=== PATIENT | female | born 2000 | race Caucasian/White ===

== ENCOUNTER 2024-12-27 07:41 | Inpatient (IN) ==
[2024-12-27] MEDS ORDERED: LIDOCAINE 1% LOCAL 20 ML VIAL INFIL PRN (09:03)
[2024-12-27] MEDS ORDERED: OXYTOCIN 30 UNITS/NSS 30 UNITS/500 ML BAG IV PRN (09:03)
[2024-12-27] MEDS ORDERED: CALCIUM CARBONATE 500 MG CHEWABLE TAB PO PRN (09:03)
[2024-12-27] MEDS: LACTATED RINGER'S 1,000 ML IV PRN (09:13)
[2024-12-27] MEDS: OXYTOCIN 30 UNITS/NSS 30 UNITS/500 ML BAG IV PRN (09:14)
[2024-12-27 09:50] LABS: Hematocrit (blood only) 37.6 % (37.0-47.0); Hemoglobin 12.5 g/dl (12.0-16.0); Mean Corpuscular Hemoglobin 28.9 pg (25.0-34.0); Mean Corpuscular Volume 86.8 fL (80.0-100.0); Platelet Count 250 K/uL (130-400); RDW Standard Deviation 46.0 fL (36.4-46.3); Red Blood Count 4.33 M/uL (4.20-5.40); White Blood Count 10.67 K/ul (4.8-10.8)
--- NOTE | 2024-12-27 12:20 | History & Physical Report ---
Date of Service December 27, 2024 Assessment & Plan (1) Obesity affecting : Plan 24 yo female currently at 39+2WGA here for IOL. Oxytocin started. Admission and Anticipated Discharge Date Admission Date: December 27, 2024 History of Present Illness Primary Care Provider: NO PCP Patient is a 24 yo female currently at 39+2WGA with an TRAE 12/31/2024 as determined by LMP who is here for reason for induction. Her was complicated by high BMI. movement present; No fluid loss;No bloody show External FHT and external uterine monitors used; category 1 tracing; normal FHT variability Had regular appointments with OB. Blood Type A Positive 05/28/24 Antibody Screen NEGATIVE Hgb 12.5 g/dl (12.0-16.0) Hct 37.6% (37.0-47.0) WBC 10.67 Plt Count 351 K/uL (130-400) Rubella IgG Antibody Immune (Immune) Treponema pallidum Ab Negative (Negative) Hep Bs Antigen Negative (Negative) Hepatitis C Antibody Negative (Negative) HIV 1&2 Ab/P24 Ag 4thGn Negative (Negative) Glucose 1 Hr 50 gm 114 mg/dl (70-130) OB Optional Labs: Chlamydia trachomatis RNA Not Detected (NotDetected) Neisseria gonorrhoeae RNA Not Detected (NotDetected) Allergies Allergy/AdvReac Type Severity Reaction Status Date / Time amoxicillin Allergy Intermediate Hives Verified 12/26/24 08:47 Home Medications Medication Instructions Recorded Confirmed Type PNV no.[id number] PO 05/21/24 12/26/24 History [ Gummies] sertraline PO 05/21/24 12/26/24 History breast pump #1 ea 10/12/24 12/26/24 Rx Past Med/Surg History Problem List (Updated 10/22/24 @ 10:59 by JEAN Dobson) Obesity affecting Supervision of normal first Encounter for anatomic survey Early stage of Medical History (Updated 10/22/24 @ 10:59 by JEAN Dobson) Varicella vaccination Depression with anxiety Surgical History (Updated 06/04/24 @ 07:47 by Rosalba Dahl) S/P tonsillectomy S/P surgical removal of pilonidal cyst Family History (System 06/04/24 @ 07:47 by Rosalba Dahl) Denies family history of Ovarian cancer Breast cancer Colorectal cancer Social History (System 06/04/24 @ 07:47 by Rosalba Dahl) Smoking Status: Never smoker Second Hand Exposure: No; Do You Dip or Chew Tobacco: No; Tobacco Cessation Education Requested by Patient: No Hx Alcohol Use: No Hx Substance Use: No Preferred Language: [place]an Communication Ability: Effective Precipitate Washer Required: No Beliefs That Will Affect Care: None marital status: marital status details: Aleks Mao ([phone] Current Living Situation: Spouse Current Living Situation Comment: lives with spouse, dogs, cat-spouse changing litter current occupational status: employed current occupation: [employer] Feels Safe at Home: Yes Safety Concerns: Feels Safe At This Time Assistive Devices: None Results & Data Results & Data Vital Signs (Past 12 Hours) Vital Signs Temp Pulse Resp BP O2 Del Method 12/27/24 12:15 93 H 132/61 12/27/24 12:00 18 12/27/24 12:00 36.7 C 18 12/27/24 11:15 99 H 138/66 12/27/24 11:00 18 12/27/24 11:00 18 12/27/24 10:30 20 12/27/24 10:30 20 12/27/24 10:15 92 H 123/70 12/27/24 10:00 20 12/27/24 10:00 20 12/27/24 09:15 18 12/27/24 09:15 94 H 18 155/77 H 12/27/24 07:55 36.6 C 88 18 137/63 Room Air 12/27/24 07:51 36.6 C 88 18 137/63 Resident Activity Tracking Resident Involvement: Resident Care Provided Care Provided: Adult Hospital Medicine
[2024-12-27] MEDS: ACETAMINOPHEN 325 MG TAB PO PRN (14:47)
--- NOTE | 2024-12-27 17:57 | Labor Progress Brief Note ---
Date of Service December 27, 2024 Subjective Tolerating ctx, not requesting epidural Assessment & Plan Admission and Anticipated Discharge Date Admission Date: December 27, 2024 Physical Exam Genitourinary: /1/anterior LOF clear FHT Cat 1 [place] Q3 w/ Pit @ 16 Results & Data Vital Signs (Past 12 Hours) Vital Signs Temp Pulse Resp BP O2 Del Method 12/27/24 17:47 96 H 136/77 12/27/24 17:30 18 12/27/24 17:30 18 12/27/24 17:00 18 12/27/24 17:00 98.6 F 18 12/27/24 16:30 20 12/27/24 16:30 20 12/27/24 16:13 93 H 124/59 L 12/27/24 15:30 18 12/27/24 15:30 18 12/27/24 15:15 98.2 F 20 12/27/24 15:12 89 123/65 12/27/24 15:00 18 12/27/24 15:00 18 12/27/24 14:40 18 12/27/24 14:40 98.4 F 18 12/27/24 14:15 93 H 113/62 12/27/24 14:00 18 12/27/24 14:00 18 12/27/24 13:16 97 H 116/58 L 12/27/24 13:00 18 12/27/24 13:00 18 12/27/24 12:15 93 H 132/61 12/27/24 12:00 18 12/27/24 12:00 98.1 F 18 12/27/24 11:15 99 H 138/66 12/27/24 11:00 18 12/27/24 11:00 18 12/27/24 10:30 20 12/27/24 10:30 20 12/27/24 10:15 92 H 123/70 12/27/24 10:00 20 12/27/24 10:00 20 12/27/24 09:15 18 12/27/24 09:15 94 H 18 155/77 H 12/27/24 07:55 97.9 F 88 18 137/63 Room Air 12/27/24 07:51 97.9 F 88 18 137/63 Coding Level of Care Code None
--- NOTE | 2024-12-28 02:17 | Labor Progress Brief Note ---
Date of Service December 28, 2024 Subjective Tolerating contractions without epidural despite pit back up to 20mu/min. Assessment & Plan (1) Encounter for induction of labor: Plan: Patient with some dilation but slow progress and less discomfort than is typically occurring at 20mu/min of pit. IUPC placed. Titrate pit to 200-250 MVU. Admission and Anticipated Discharge Date Admission Date: December 27, 2024 Physical Exam Genitourinary: LOF clear 5/80/-1/midposition FHT Cat 1 [place] Q2-3 IUPC placed after patient was counseled and consented. Results & Data Vital Signs (Past 12 Hours) Vital Signs Temp Pulse Resp BP 12/28/24 01:59 106 H 139/73 12/28/24 01:02 103 H 123/64 12/28/24 00:07 100 H 125/57 L 12/28/24 00:00 16 12/28/24 00:00 97.9 F 16 12/27/24 23:02 95 H 116/54 L 12/27/24 23:00 16 12/27/24 23:00 16 12/27/24 22:00 16 12/27/24 22:00 98.4 F 16 12/27/24 21:32 93 H 140/63 12/27/24 20:02 98.4 F 90 16 126/60 12/27/24 18:57 98.6 F 78 18 120/65 12/27/24 18:45 18 12/27/24 18:45 18 12/27/24 18:30 18 12/27/24 18:30 18 12/27/24 18:13 90 130/65 12/27/24 18:00 18 12/27/24 18:00 18 12/27/24 17:47 96 H 136/77 12/27/24 17:30 18 12/27/24 17:30 18 12/27/24 17:00 18 12/27/24 17:00 98.6 F 18 12/27/24 16:30 20 12/27/24 16:30 20 12/27/24 16:13 93 H 124/59 L 12/27/24 15:30 18 12/27/24 15:30 18 12/27/24 15:15 98.2 F 20 12/27/24 15:12 89 123/65 12/27/24 15:00 18 10/02/25 15:00 18 12/27/24 14:40 18 12/27/24 14:40 98.4 F 18 Coding Level of Care Code None Diagnoses Encounter for induction of labor Z34.90
--- NOTE | 2024-12-28 09:13 | Labor Progress Brief Note ---
Date of Service December 28, 2024 Subjective comfortable, pit at 30, feels some pressure. readyto void. Assessment & Plan (1) Encounter for induction of labor: (2) Obesity affecting : Plan cx change noted, first exam by me, she has been sitting upright most of am, rec she change position, possible knee chest to see if can help advance her labor. she does not have epidural and so freely mobile. she is agreeable. fhts categ 1. pt aware i am assuming care. Admission and Anticipated Discharge Date Admission Date: December 27, 2024 Physical Exam Constitutional: WD/WN, vitals as above Genitourinary: Manual OB Exam: + cervical dilation (7-8cm), + cervical effacement (irregular, 75% to 90%, anterior cx less effaced. ) and + station 0 OB Exam Monitor Tracing: + external FHT monitor used, + intra-uterine pressure catheter used (mvu's have been adequate,pit at 30. ), + category I and + normal FHT variability Results & Data Vital Signs (Past 12 Hours) Vital Signs Temp Pulse Resp BP 12/28/24 08:24 99 H 136/64 12/28/24 07:03 93 H 133/66 12/28/24 07:02 18 12/28/24 07:02 98.8 F 18 12/28/24 06:21 98.4 F 96 H 16 135/61 12/28/24 05:30 97 H 132/66 12/28/24 04:26 98.6 F 90 16 136/71 12/28/24 02:00 16 12/28/24 02:00 97.9 F 16 12/28/24 01:59 106 H 139/73 12/28/24 01:02 103 H 123/64 12/28/24 00:07 100 H 125/57 L 12/28/24 00:00 16 12/28/24 00:00 97.9 F 16 12/27/24 23:02 95 H 116/54 L 12/27/24 23:00 16 12/27/24 23:00 16 12/27/24 22:00 16 12/27/24 22:00 98.4 F 16 12/27/24 21:32 93 H 140/63 Coding Level of Care Code None Diagnoses Encounter for induction of labor Z34.90 Obesity affecting O99.210
[2024-12-28] MEDS ORDERED: diphenhydrAMINE 50 MG/ML VIAL IV PRN ×3 (10:37→19:37)
[2024-12-28] MEDS ORDERED: BUPIVACAINE 0.25% PF 30 ML VIAL EPI PRN (10:37)
[2024-12-28] MEDS ORDERED: NALOXONE HCL 0.4 MG/1 ML VIAL/CARP IV PRN ×2 (10:37→19:37)
[2024-12-28] MEDS ORDERED: NALBUPHINE HCL INJ 10 MG/ML AMP IV PRN ×2 (10:37→19:37)
[2024-12-28] MEDS ORDERED: SODIUM CHLORIDE 0.9% PF INJ 10 ML VIAL EPI PRN (10:37)
[2024-12-28] MEDS ORDERED: ROPIVACAINE 0.5% PF 5 MG/ML 20 ML VIAL EPI PRN (10:37)
[2024-12-28] MEDS ORDERED: NALOXONE HCL 1 MG in SODIUM CHLORIDE 0.9% 1,000 ML IV PRN ×2 (10:37→19:37)
[2024-12-28] MEDS ORDERED: LIDOCAINE 2% MPF LOCAL 5 ML VIAL EPI PRN (10:37)
--- NOTE | 2024-12-28 10:38 | Anesthesiology Consultation ---
Date of Service December 28, 2024 Assessment & Plan (1) Encounter for pre-operative examination: Chart Review Chart Review: Patient NOT seen in Pre Admission Testing and Acceptable Risk for Labor Epidural Consults Requested none History Height/Weight Height: 5 ft 3 in Weight: 136.078 kg Allergies Allergy/AdvReac Type Severity Reaction Status Date / Time amoxicillin Allergy Intermediate Hives Verified 12/26/24 08:47 Medications Home Medications Medication Instructions Recorded Confirmed Last Taken PNV no.[id number] 100 mg PO DAILY 05/21/24 12/27/24 12/26/24 [ Gummies] sertraline 50 mg PO DAILY 05/21/24 12/27/24 12/26/24 breast pump #1 ea 10/12/24 12/26/24 Unknown Active Medications Generic Name Dose Route Start Last Admin Trade Name Freq PRN Reason Stop Dose Admin Acetaminophen 650 mg 12/27/24 14:41 12/27/24 14:47 Acetaminophen 325 Mg Tab PO 01/26/25 14:40 650 mg Q4H PRN Administration Headache or Pain Oxytocin 30 units in 500 mls @ 30 mls/hr 12/27/24 09:03 12/28/24 07:30 Pitocin 30 Units/Nss IV 12/29/24 09:02 1.8 units/hr .[id number] PRN 30 mls/hr Labor Induction/Augmentation Titration Protocol 1.8 UNITS/HR Lactated Ringer's 1,000 mls @ 125 mls/hr 12/27/24 09:03 12/28/24 09:19 Lr IV 12/29/24 09:02 125 mls/hr .Q8H PRN Administration L&D Protocol Protocol Past Medical History Medical History Varicella vaccination Depression with anxiety Past Family History Family History Denies family history of Ovarian cancer Breast cancer Colorectal cancer Past Surgical History Surgical History S/P tonsillectomy S/P surgical removal of pilonidal cyst Social History Smoking Status: Never smoker Do You Dip or Chew Tobacco: No Hx Alcohol Use: No Hx Substance Use: No Physical Exam Vital Signs Last Vital Signs Temp 98.4 F 12/28/24 09:45 Pulse 91 H 12/28/24 09:45 Resp 18 12/28/24 09:45 BP 125/57 L 12/28/24 09:45 O2 Del Method Room Air 12/27/24 07:55 Testing Laboratory Results 12/27/24 09:22
[2024-12-28] MEDS: LIDOCAINE 2%/EPINEPHRINE 1:200,000 20 ML PF EPI STA (11:00)
[2024-12-28] MEDS: BUPIVACAINE 0.25% PF 30 ML VIAL EPI STA (11:00)
[2024-12-28] MEDS: fentANYL 2 MCG/ML BUPIVacaine 0.125%-NSS 100ML BAG EPI PRN (11:03)
[2024-12-28] MEDS: BUPIVACAINE 0.25% PF 30 ML VIAL ONE (12:29)
[2024-12-28] MEDS: fentANYL 2 MCG/ML BUPIVacaine 0.125%-NSS 100ML BAG ONE (12:29)
[2024-12-28] MEDS: LIDOCAINE 2%/EPINEPHRINE 1:200,000 20 ML PF ONE (12:29)
[2024-12-28] MEDS: SODIUM CHLORIDE 0.9% PF INJ 10 ML VIAL ONE (12:30)
[2024-12-28] MEDS: SODIUM CHLORIDE 0.9% PF INJ 10 ML VIAL EPI STA (12:31)
--- NOTE | 2024-12-28 12:58 | Labor Progress Brief Note ---
Date of Service December 28, 2024 Subjective pt now with epidural. Assessment & Plan (1) Encounter for induction of labor: (2) Obesity affecting : Plan making cx change but not alot of pressure against cx even when examined with ctx, even with pit at 30. will continue current care. fhts categ 1. change positions. reeval cx in about 2 hr. pt agreeable. Admission and Anticipated Discharge Date Admission Date: December 27, 2024 Physical Exam Constitutional: WD/WN, vitals as above Genitourinary: Manual OB Exam: + cervical dilation 9 cm, + cervical effacement 90% and + station 0 OB Exam Monitor Tracing: + external FHT monitor used, + external uterine monitor used (q2), + intra-uterine pressure catheter used (guided back intrauterine, will see if traces, pit at 30), + category I and + normal FHT variability Results & Data Vital Signs (Past 12 Hours) Vital Signs Temp Pulse Resp BP Pulse Ox 12/28/24 12:55 88 100 12/28/24 12:50 89 98 12/28/24 12:48 85 128/62 12/28/24 12:45 87 99 12/28/24 12:40 87 99 12/28/24 12:35 83 98 12/28/24 12:32 94 H 127/62 12/28/24 12:30 85 99 12/28/24 12:25 88 99 12/28/24 12:20 83 98 12/28/24 12:18 90 132/67 12/28/24 12:15 99 H 98 12/28/24 12:10 83 98 12/28/24 12:05 81 98 12/28/24 12:02 80 108/53 L 12/28/24 12:00 87 99 12/28/24 11:55 83 98 12/28/24 11:50 87 98 12/28/24 11:47 18 12/28/24 11:47 97.9 F 18 12/28/24 11:45 88 99 12/28/24 11:40 86 98 12/28/24 11:38 83 113/56 L 12/28/24 11:35 82 113/56 L 98 12/28/24 11:32 85 112/53 L 12/28/24 11:30 87 97 12/28/24 11:29 85 113/53 L 12/28/24 11:27 92 H 126/55 L 12/28/24 11:26 98 H 91 12/28/24 11:25 97 H 96 12/28/24 11:23 95 H 131/61 12/28/24 11:20 97 12/28/24 11:20 102 H 12/28/24 11:20 100 H 128/62 12/28/24 11:17 99 H 128/61 12/28/24 11:15 103 H 97 12/28/24 11:14 96 H 134/61 12/28/24 11:11 102 H 136/62 12/28/24 11:10 113 H 97 12/28/24 11:09 103 H 133/61 12/28/24 11:05 100 H 126/61 97 12/28/24 11:02 101 H 130/59 L 12/28/24 11:00 101 H 98 12/28/24 10:59 94 H 143/74 H 12/28/24 10:56 94 H 141/71 H 12/28/24 10:55 85 97 12/28/24 10:50 101 H 97 12/28/24 10:45 105 H 97 12/28/24 09:45 98.4 F 91 H 18 125/57 L 12/28/24 08:24 99 H 136/64 12/28/24 07:03 93 H 133/66 12/28/24 07:02 18 12/28/24 07:02 98.8 F 18 12/28/24 06:21 98.4 F 96 H 16 135/61 12/28/24 05:30 97 H 132/66 12/28/24 04:26 98.6 F 90 16 136/71 12/28/24 02:00 16 12/28/24 02:00 97.9 F 16 12/28/24 01:59 106 H 139/73 12/28/24 01:02 103 H 123/64 Coding Level of Care Code None Diagnoses Encounter for induction of labor Z34.90 Obesity affecting O99.210
[2024-12-28] MEDS: ONDANSETRON INJ 2 MG/ML 2 ML VIAL IV PRN (14:53)
[2024-12-28] MEDS: ACETAMINOPHEN 500 MG TAB ONE (16:36)
[2024-12-28] MEDS ORDERED: LIDOCAINE 2%/EPINEPHRINE 1:200,000 20 ML PF ONE (16:54)
[2024-12-28] MEDS ORDERED: DEXAMETHASONE SOD INJ 4 MG/ML VIAL ONE (16:54)
[2024-12-28] MEDS ORDERED: ONDANSETRON INJ 2 MG/ML 2 ML VIAL ONE (16:54)
[2024-12-28] MEDS ORDERED: MoRPHine SULFATE PF 1 MG/ML 10 ML AMP/VIAL ONE (16:54)
--- NOTE | 2024-12-28 17:00 | Labor Progress Brief Note ---
Date of Service December 28, 2024 Subjective ctsp due to elevated temp and tachycardia Assessment & Plan (1) Encounter for induction of labor: (2) Obesity affecting : (3) Chorioamnionitis: (4) tachycardia affecting care of mother, delivered: Plan no change in cx and now with elevated temp, most likely c/w chorio and tachycardia. rec c/s delivery and pt and partner agree. consent reviewed and signed. peds and anesth aware. Admission and Anticipated Discharge Date Admission Date: December 27, 2024 Physical Exam Constitutional: WD/WN, vitals as above (temp 39.4) Genitourinary: Manual OB Exam: + cervical dilation (9cm no change, 90% effaced 0 station) OB Exam Monitor Tracing: + external FHT monitor used, + intra- uterine pressure catheter used, + category I ( tachycardia 180s. ) and + normal FHT variability Results & Data Vital Signs (Past 12 Hours) Vital Signs Temp Pulse Resp BP Pulse Ox 12/28/24 16:50 135 H 99 12/28/24 16:45 132 H 99 12/28/24 16:40 127 H 100 12/28/24 16:35 127 H 100 12/28/24 16:30 113 H 100 12/28/24 16:28 113 H 118/56 L 12/28/24 16:25 114 H 100 12/28/24 16:20 108 H 96 12/28/24 16:15 116 H 99 12/28/24 16:14 112 H 92 12/28/24 16:10 102 H 100 12/28/24 16:05 105 H 100 12/28/24 16:00 100 H 100 12/28/24 15:57 105 H 121/56 L 12/28/24 15:55 109 H 99 12/28/24 15:50 107 H 100 12/28/24 15:45 128 H 100 12/28/24 15:40 120 H 100 12/28/24 15:35 123 H 99 12/28/24 15:30 114 H 100 12/28/24 15:25 118 H 100 12/28/24 15:20 128 H 92 12/28/24 15:15 99.3 F 116 H 100 12/28/24 15:10 116 H 99 12/28/24 15:06 108/56 L 12/28/24 15:05 117 H 96 12/28/24 15:00 120 H 98 12/28/24 14:59 122 H 91 12/28/24 14:55 117 H 99 12/28/24 14:50 124 H 99 12/28/24 14:45 109 H 99 12/28/24 14:40 118 H 100 12/28/24 14:35 114 H 100 12/28/24 14:30 107 H 100 12/28/24 14:25 114 H 97 12/28/24 14:20 87 100 12/28/24 14:19 80 78/38 L 12/28/24 14:15 88 12/28/24 14:15 90 176/111 H 100 12/28/24 14:14 98.4 F 12/28/24 14:13 22 12/28/24 14:12 94 H 92 12/28/24 14:10 96 H 100 12/28/24 14:07 92 H 89 L 12/28/24 14:05 80 100 12/28/24 14:00 82 100 12/28/24 13:55 90 94 12/28/24 13:54 87 93 12/28/24 13:50 81 100 12/28/24 13:49 148 H 116/51 L 12/28/24 13:45 82 100 12/28/24 13:42 96 H 93 12/28/24 13:40 82 100 12/28/24 13:35 92 H 100 12/28/24 13:30 100 H 100 12/28/24 13:25 77 100 12/28/24 13:20 79 100 12/28/24 13:15 73 100 12/28/24 13:11 104 H 92 12/28/24 13:10 94 H 100 12/28/24 13:05 84 99 12/28/24 13:02 82 129/62 12/28/24 13:00 82 99 12/28/24 12:55 88 100 12/28/24 12:50 89 98 12/28/24 12:48 85 128/62 12/28/24 12:45 87 99 12/28/24 12:40 87 99 12/28/24 12:35 83 98 12/28/24 12:32 94 H 127/62 12/28/24 12:30 85 99 12/28/24 12:25 88 99 12/28/24 12:20 83 98 12/28/24 12:18 90 132/67 12/28/24 12:15 99 H 98 12/28/24 12:10 83 98 12/28/24 12:05 81 98 12/28/24 12:02 80 108/53 L 12/28/24 12:00 87 99 12/28/24 11:55 83 98 12/28/24 11:50 87 98 12/28/24 11:47 18 12/28/24 11:47 97.9 F 18 12/28/24 11:45 88 99 12/28/24 11:40 86 98 12/28/24 11:38 83 113/56 L 12/28/24 11:35 82 113/56 L 98 12/28/24 11:32 85 112/53 L 12/28/24 11:30 87 97 12/28/24 11:29 85 113/53 L 12/28/24 11:27 92 H 126/55 L 12/28/24 11:26 98 H 91 12/28/24 11:25 97 H 96 12/28/24 11:23 95 H 131/61 12/28/24 11:20 97 12/28/24 11:20 102 H 12/28/24 11:20 100 H 128/62 12/28/24 11:17 99 H 128/61 12/28/24 11:15 103 H 97 12/28/24 11:14 96 H 134/61 12/28/24 11:11 102 H 136/62 12/28/24 11:10 113 H 97 12/28/24 11:09 103 H 133/61 12/28/24 11:05 100 H 126/61 97 12/28/24 11:02 101 H 130/59 L 12/28/24 11:00 101 H 98 12/28/24 10:59 94 H 143/74 H 12/28/24 10:56 94 H 141/71 H 12/28/24 10:55 85 97 12/28/24 10:50 101 H 97 12/28/24 10:45 105 H 97 12/28/24 09:45 98.4 F 91 H 18 125/57 L 12/28/24 08:24 99 H 136/64 12/28/24 07:03 93 H 133/66 12/28/24 07:02 18 12/28/24 07:02 98.8 F 18 12/28/24 06:21 98.4 F 96 H 16 135/61 12/28/24 05:30 97 H 132/66 Coding Level of Care Code None Diagnoses Encounter for induction of labor Z34.90 Obesity affecting O99.210 Chorioamnionitis O41.1290 tachycardia affecting care of mother, delivered O76
[2024-12-28] MEDS: CITRIC ACID/SODIUM CITRATE 15 ML UDC PO SCH (17:03)
[2024-12-28] MEDS: ceFAZolin 3000MG 3,000 MG/72.5 ML BAG IV SCH (17:06)
[2024-12-28] MEDS ORDERED: SODIUM CHLORIDE 0.9% PF INJ 10 ML VIAL ONE (17:25)
[2024-12-28] MEDS ORDERED: PHENYLEPHRINE HCL 10 MG/ML VIAL ONE (17:25)
[2024-12-28] MEDS ORDERED: PROMETHAZINE HCL INJ 25 MG/ML 1 ML VIAL ONE (17:29)
[2024-12-28] MEDS ORDERED: OXYTOCIN 10 UNITS/ML VIAL ONE (17:34)
[2024-12-28] MEDS ORDERED: METHYLERGONOVINE MALEATE 0.2 MG/ML AMP ONE (17:38)
[2024-12-28] MEDS ORDERED: PHENYLEPHRINE 100MCG/ML 5ML SYR ONE (17:39)
[2024-12-28] MEDS ORDERED: TRANEXAMIC ACID / 0.7% NACL 1000MG/100ML BAG IV ONE (17:41)
[2024-12-28] MEDS ORDERED: LACTATED RINGER'S 1,000 ML IV SCH ×2 (18:00→18:45)
[2024-12-28] MEDS: AZITHROMYCIN 500 MG/255 ML BAG IV SCH (18:08)
[2024-12-28] MEDS: CITRIC ACID/SODIUM CITRATE 15 ML UDC ONE (18:09)
--- NOTE | 2024-12-28 18:13 | Operative Report ---
Post Operative Report Pre & Post Diagnosis Operation Date: 12/28/24 17:00 <No data on this case meets the specified criteria> 1. 39+wk iup 2. Maternal obesity 3. Induction of labor 4. Failure to Progress 5. Presumed Chorioamnionitis 6. Tachycardia. I identified the patient and participated in the time-out.: Yes Procedure Operation Date: 12/28/24 17:00 <No data on this case meets the specified criteria> Primary Low Transverse Section. Surgeon Paulina Coronel MD, FACOG Dump [employer] Staci Quantitative Blood Loss (QBL) 353 cc Findings Consistent with Post-Op Diagnosis (viable male apgars pending. normal uterus tubes and ovaries bilaterally) Fluids 1000cc Specimens cord blood and cord gases Drains orozco Anesthesia Type Labor Epidural Complications none Disposition Accompanied Patient To Recovery: No Disposition: L&D Indications 24yo at term for planned induction for obesity, bmi 44. Ultimately progressed to 9cm but then persisted at that dilation for at least 4hrs on high dose pitocin with development of presumed chorioamnionitis and tachycardia recommended for c/section and she agreed. Description of Procedure The patient was taken to the operating room and identified. After adequate anesthesia was obtained, she was placed in the supine position with a leftward tilt on the operating table and prepped and draped in the usual sterile fashion. A orozco catheter had already been placed. The knife was used to create a Pfannensteil skin incision that was carried down to the underlying layer of fascia. The fascia was nicked in the midline and this opening was extended laterally using Quinones scissors. Josr clamps were placed on the superior and inferior aspect of the fascial incision tenting it upward and the underlying rectus muscles were dissected off the overlying fascia both sharply and bluntly using Quinones scissors. The rectus muscles were bluntly in the midline. The peritoneal cavity was bluntly entered into. This opening was stretched. The bladder blade was placed. The vesicouterine peritoneum was elevated and opened up into and the bladder flap was created digitally and bladder blade was replaced. The knife was used to create a hysterotomy and this opening was stretched. The operators hand was placed through the hysterotomy and the bladder blade was removed. The head was elevated and flexed and with fundal pressure the head was delivered. The shoulders and body were rapidly delivered. The cord was clamped and cut and the 's mouth and nares were bulb suction. The was handed off to the awaiting pediatricians. Cord blood was obtained. The placenta was manually expressed. The uterus was exteriorized and cleared of all clots and debris. Dilute IV Pitocin was begun. The uterine tone was not improving and therefore IM methergine and 1gm of TXA given. The hysterotomy was closed in a running interlocking fashion using 0 Vicryl followed by a second imbricating layer of 0 Vicryl. The hysterotomy was not hemostatic and additional figure of eight sutures of 0-vicryl were placed for excellent hemostasis. The uterine tone was improved. The pelvis was suctioned. The uterus was returned to the abdomen. The gutters were cleared of all clots and debris. The hysterotomy was reinspected and noted to be hemostatic. The fascia was then closed in running fashion using 0 Vicryl. The subcutaneous fat was copiously irrigated and reapproximated using 2-0 chromic. The skin was closed in a subcuticular fashion using 4-0 monocryl. At this point the procedure was terminated. The patient was transferred to the recovery room in stable condition. All sponge, lap and needle counts are correct x2. I attest to the content of the Intraoperative Record and any orders documented therein. Any exceptions are noted below. OB Procedure Charges [id number]
[2024-12-28] MEDS ORDERED: PROMETHAZINE 12.5 MG/50.5 ML BAG IV PRN (18:36)
[2024-12-28] MEDS ORDERED: ZOLPIDEM TARTRATE 5 MG TAB PO PRN (18:36)
[2024-12-28] MEDS ORDERED: MAGNESIUM HYDROXIDE SUSP 30 ML UDC PO PRN (18:36)
[2024-12-28] MEDS ORDERED: HYDROCORTISONE ACETATE 25 MG SUPP PR PRN (18:36)
[2024-12-28] MEDS ORDERED: SENNA 8.6 MG TAB PO PRN (18:36)
[2024-12-28] MEDS ORDERED: BENZOCAINE 20% SPRY 85 APPLN/85 GM CAN EXT PRN (18:36)
[2024-12-28] MEDS ORDERED: CALCIUM CARBONATE 500 MG CHEWABLE TAB PO PRN (18:36)
[2024-12-28] MEDS ORDERED: HYDROmorphone INJ 0.5 MG/0.5 ML SYR IV PRN ×2 (18:36→19:37)
[2024-12-28] MEDS ORDERED: ONDANSETRON INJ 2 MG/ML 2 ML VIAL IV PRN ×2 (18:36→19:37)
[2024-12-28] MEDS ORDERED: diphenhydrAMINE Capsule 25 MG CAP PO PRN (18:36)
[2024-12-28] MEDS: LACTATED RINGER'S 1,000 ML IV SCH (18:37)
[2024-12-28] MEDS: KETOROLAC 30 MG/ML VIAL IV SCH (18:46)
[2024-12-28] MEDS: KETOROLAC 30 MG/ML VIAL ONE (19:02)
[2024-12-28] MEDS ORDERED: NALOXONE HCL 0.08 MG in SYRINGE 1.8 ML IV PRN (19:37)
[2024-12-28] MEDS ORDERED: LACTATED RINGER'S 500 ML IV PRN (19:37)
[2024-12-28] MEDS ORDERED: PROMETHAZINE 6.25 MG/50.25 ML BAG IV PRN (19:37)
[2024-12-28] MEDS ORDERED: MoRPHine SULFATE PF 1 MG/ML 10 ML AMP/VIAL EPI ONE (19:40)
[2024-12-28] MEDS ORDERED: NO NARCOTICS OR SEDATIVES SCH (19:45)
[2024-12-28] MEDS ORDERED: DC INTRASPINAL MORPHINE SCH (19:45)
[2024-12-28] MEDS ORDERED: SODIUM CHLORIDE 0.9% 1,000 ML IV SCH (19:45)
[2024-12-28] MEDS: OXYTOCIN 20 UNITS/LR 1,002 ML IV SCH (21:11)
[2024-12-28] MEDS: DOCUSATE SODIUM 100 MG CAP PO SCH (21:24)
[2024-12-28] MEDS ORDERED: Nursing to Pharmacy Communication SCH (22:00)
[2024-12-28] MEDS: SERTRALINE HCL 50 MG TABLET PO SCH (22:29)
[2024-12-29] MEDS: ACETAMINOPHEN 325 MG TAB PO SCH (00:46)
[2024-12-29] MEDS: SIMETHICONE 80 MG CHEW PO SCH (06:30)
[2024-12-29 06:51] LABS: Hematocrit (blood only) 32.1 % (37.0-47.0); Hemoglobin 11.0 g/dl (12.0-16.0); Immature Granulocytes # (auto) 0.20 K/uL (0.01-0.20); Immature Granulocytes % (auto) 1.0 %; Mean Corpuscular Hemoglobin 30.1 pg (25.0-34.0); Mean Corpuscular Volume 87.9 fL (80.0-100.0); Platelet Count 203 K/uL (130-400); RDW Standard Deviation 47.0 fL (36.4-46.3); Red Blood Count 3.65 M/uL (4.20-5.40); White Blood Count 20.36 K/ul (4.8-10.8)
--- NOTE | 2024-12-29 07:53 | Obstetrical Progress Note ---
Date of Service December 29, 2024 Assessment & Plan (1) care following delivery: Plan stable doing well. labs noted. no fever. adv diet, ambulate, await void. baby in INBN. routine care. Day #:: 1 Subjective Ambulation: ambulating normally Passing Gas:: Yes Diet Tolerance:: regular diet Lochia:: Small Feeding Type:: breast feeding has not voided yet. Constitutional: + as per Subjective / HPI Physical Exam Constitutional WD/WN, vitals as above Respiratory normal respiratory effort, lungs clear to auscultation Cardiovascular Rate/Rhythm: regular rate and regular rhythm Gastrointestinal (Abdomen) Inspection/Auscultation: abdomen normal to inspection and + abdominal surgical incision (c/d/i ) Percussion/Palpation: abdomen soft Fundus firm 1cm down Musculoskeletal nt calves [] edema Neurologic grossly normal Psychiatric A+Ox3, euthymic affect Results & Data Vital Signs (Past 12 Hours) Vital Signs Temp Pulse Pulse Resp BP BP Pulse Ox 12/29/24 06:15 18 97 12/29/24 05:00 18 93 12/29/24 04:15 18 94 12/29/24 03:07 97.7 F 83 19 132/79 96 12/29/24 03:00 18 94 12/29/24 02:00 18 96 12/29/24 01:00 18 96 12/29/24 00:50 97.7 F 92 H 18 128/70 99 12/29/24 00:00 18 96 12/28/24 23:00 18 96 12/28/24 22:00 18 95 12/28/24 21:25 18 97 12/28/24 21:25 97.9 F 90 18 117/76 97 12/28/24 21:20 97.5 F L 94 H 18 121/71 97 12/28/24 20:19 16 95 12/28/24 20:19 92 H 125/55 L 12/28/24 20:15 89 95 12/28/24 20:13 104 H 124/61 12/28/24 20:10 103 H 94 12/28/24 20:05 99 H 94 12/28/24 20:03 97 H 129/60 12/28/24 20:00 101 H 94 12/28/24 19:55 101 H 95 12/28/24 19:53 101 H 130/63 O2 Del Method 12/29/24 06:15 12/29/24 05:00 12/29/24 04:15 12/29/24 03:07 Room Air 12/29/24 03:00 12/29/24 02:00 12/29/24 01:00 12/29/24 00:50 Room Air 12/29/24 00:00 12/28/24 23:00 12/28/24 22:00 12/28/24 21:25 12/28/24 21:25 Room Air 12/28/24 21:20 Room Air 12/28/24 20:19 Room Air 12/28/24 20:19 12/28/24 20:15 12/28/24 20:13 12/28/24 20:10 12/28/24 20:05 12/28/24 20:03 12/28/24 20:00 12/28/24 19:55 12/28/24 19:53
[2024-12-29] MEDS: PRENATAL VITAMIN 1 TAB PO SCH (08:46)
[2024-12-29] MEDS: FERROUS SULFATE 325 MG TAB PO SCH (08:46)
[2024-12-29] MEDS ORDERED: SERTRALINE HCL 50 MG TABLET PO SCH (09:00)
[2024-12-29] MEDS ORDERED: KETOROLAC 30 MG/ML VIAL IV PRN (18:32)
[2024-12-29] MEDS: IBUPROFEN 600 MG TAB PO SCH (18:40)
[2024-12-30 06:54] LABS: Hematocrit (blood only) 30.0 % (37.0-47.0); Hemoglobin 9.9 g/dl (12.0-16.0)
--- NOTE | 2024-12-30 07:42 | Anesthesiology Progress Note ---
Date of Service December 28, 2024 Anesthesia Post Procedure Vital Signs Vital Signs: Temp Pulse Pulse Resp BP Pulse Ox O2 Del Method 12/30/24 04:15 98.4 F 81 16 135/81 97 Room Air 12/29/24 22:00 98.4 F 91 H 16 127/83 97 Room Air 12/29/24 16:00 98.4 F 92 H 16 128/78 96 Room Air 12/29/24 12:45 16 98 12/29/24 12:45 97.5 F L 82 16 110/73 98 Room Air 12/29/24 08:10 18 96 12/29/24 08:10 98.2 F 77 18 128/76 96 Room Air Pain Intensity Abdomen: Pain Intensity: 4 Transfer of Care Handoff Completed per policy Notes Mental Status: alert / awake / arousable and participated in evaluation Patient Amnestic to Procedure: Yes Nausea / Vomiting: adequately controlled Pain: adequately controlled Airway Patency, RR, SpO2: stable & adequate BP & HR: stable & adequate Hydration State: stable & adequate Neuraxial Anesthesia: was administered and sensory block is resolving Anesthetic Complications: no major complications apparent and Pt Satisfied with anesthetic care
--- NOTE | 2024-12-30 07:43 | Anesthesia Procedure Note ---
Date of Service December 28, 2024 Anesthesia Post Epidural Note Vital Signs Vital Signs: Temp Pulse Resp BP Pulse Ox O2 Del Method 98.4 F 81 16 135/81 97 Room Air 12/30/24 04:15 12/30/24 04:15 12/30/24 04:15 12/30/24 04:15 12/30/24 04:15 12/30/24 04:15 Pain Intensity Abdomen: Pain Intensity: 4 Notes Mental Status: alert / awake / arousable and participated in evaluation Nausea / Vomiting: adequately controlled Pain: adequately controlled Airway Patency, RR, SpO2: stable & adequate BP & HR: stable & adequate Hydration State: stable & adequate Neuraxial Anesthesia: was administered and sensory block is resolving Anesthetic Complications: no major complications apparent and Pt Satisfied with anesthetic care Epidural: Removed without complications and With tip intact
--- NOTE | 2024-12-30 07:55 | Obstetrical Progress Note ---
Date of Service December 30, 2024 Assessment & Plan (1) care following delivery: POD#2 doing well, continue postop care. If baby is ready to go home tomorrow, will anticipate DC home then. Subjective Ambulation: ambulating normally Voiding: no voiding problems Diet Tolerance:: regular diet Lochia:: Moderate Review of Systems All systems reviewed & are unremarkable except as noted in HPI & below Physical Exam Constitutional WD/WN, vitals as above no acute distress Respiratory normal respiratory effort Cardiovascular Rate/Rhythm: regular rate and regular rhythm Gastrointestinal (Abdomen) Inspection/Auscultation: abdomen normal to inspection; abdomen not distended Percussion/Palpation: abdomen soft Incision CDI Genitourinary OB Exam Abdomen: + fundal height Fundus: + firm; not tender Results & Data Vital Signs (Past 12 Hours) Vital Signs Temp Pulse Resp BP Pulse Ox O2 Del Method 12/30/24 04:15 36.9 C 81 16 135/81 97 Room Air 12/29/24 22:00 36.9 C 91 H 16 127/83 97 Room Air
[2024-12-30] MEDS: DIPHTHER/TETAN/PERTUS Vaccine (Tdap, Adol/Adult) 0.5mL IM ONE (16:22)
[2024-12-30 20:35] VITALS: RESP 18
[2024-12-30 23:32] VITALS: O2SAT 97
[2024-12-31] MEDS: IBUPROFEN 600 MG TAB PO PRN (01:07)
[2024-12-31] MEDS: ACETAMINOPHEN 325 MG TAB PO PRN (01:08)
--- NOTE | 2024-12-31 07:09 | Obstetrical Progress Note ---
Date of Service December 31, 2024 Assessment & Plan (1) Obesity affecting : (2) Chorioamnionitis: (3) tachycardia affecting care of mother, delivered: Plan Assessment and plan _24yo post- day 3 s/p Fells well today. Vital signs stable Continue post- care Encourage ambulation and Pain controlled with ibuprofen Hgb stable Discharge home today, follow up with in 6 weeks. Admission and Anticipated Discharge Date Admission Date: December 27, 2024 Supervising Physician Co-Signing Physician Notes Resident Physician Supervision Note: I interviewed and examined the patient. Discussed with Dr. Morales and agree with findings and plan as documented in the note. Any exceptions or clarifications are listed here: POD3 doing well. DC home today, Rx oxycodone #10 tabs. Followup in office in 6 mo. Documented By: Ashley Small, DO Subjective Post- HPI 24 yo post- day 3 s/p Ambulation: ambulating normally Voiding: no voiding problems Passing Gas:: Yes Diet Tolerance:: regular diet Lochia:: Small Feeding Type:: bottle and breast feeding Current Pain Level:Minimal pain Resting comfortably this AM in NAD. Denies KUMAR, CP, SOB, N/V/D, LE pain/swelling. Physical Exam Constitutional: WD/WN, vitals as above no acute distress Respiratory: normal respiratory effort Cardiovascular: Rate/Rhythm: regular rate and regular rhythm Gastrointestinal (Abdomen): Inspection/Auscultation: abdomen normal to inspection; abdomen not distended Percussion/Palpation: abdomen soft Incision CDI Genitourinary: OB Exam Abdomen: + fundal height Fundus: + firm; not tender Results & Data Vital Signs (Past 12 Hours) Vital Signs Temp Pulse Resp BP Pulse Ox O2 Del Method 12/30/24 23:05 37.0 C 90 18 122/75 97 Room Air 12/30/24 19:35 37.0 C 98 H 18 120/76 96 Room Air Resident Activity Tracking Resident Involvement: Resident Care Provided Care Provided: Adult Hospital Medicine
[2024-12-31 08:12] VITALS: BP 137/80; TEMP 98.2
[2024-12-31 10:46] VITALS: PULSE 77
--- NOTE | 2025-01-01 21:54 | Discharge Summary ---
Date of Service January 01, 2025 Admission HPI Per Admitting Provider Patient is a 24 yo female currently at 39+2WGA with an TRAE 12/31/2024 as determined by LMP who is here for reason for induction. Her was complicated by high BMI. movement present; No fluid loss;No bloody show External FHT and external uterine monitors used; category 1 tracing; normal FHT variability Had regular appointments with OB. Blood Type A Positive 05/28/24 Antibody Screen NEGATIVE Hgb 12.5 g/dl (12.0-16.0) Hct 37.6% (37.0-47.0) WBC 10.67 Plt Count 351 K/uL (130-400) Rubella IgG Antibody Immune (Immune) Treponema pallidum Ab Negative (Negative) Hep Bs Antigen Negative (Negative) Hepatitis C Antibody Negative (Negative) HIV 1&2 Ab/P24 Ag 4thGn Negative (Negative) Glucose 1 Hr 50 gm 114 mg/dl (70-130) OB Optional Labs: Chlamydia trachomatis RNA Not Detected (NotDetected) Neisseria gonorrhoeae RNA Not Detected (NotDetected) Discharge Data Consultations 12/27/24 09:03 Consult Anesthesiology Stat Procedures Performed Operation Date: 12/28/24 17:00 Actual Procedures p Primary Low Transverse Section in for delivery of live male child at 1732 - Paulina Coronel MD, [facility] Course (1) care following delivery: Plan The patient underwent the above stated procedure without incident and her postoperative course and recovery was uncomplicated. On her postoperative day #3 she was tolerating a regular diet, voiding spontaneously, ambulating without problem and was using oral meds for adequate pain control. Her postoperative hemoglobin was 9.9. She was given written and verbal discharge instructions and told to followup in office at 6wks. She was given appropriate pain medicine prescriptions. Coding Level of Care Code None Diagnoses care following delivery Z39.2
== END 2024-12-31 12:24 | disposition home or self-care (01) | DRG 786 ==
LOC: 4S1 07:41 → 4E2 12-28 20:37
DX: O62.1 Secondary uterine inertia; O99.214 Obesity complicating childbirth; O76 Abnormality in fetal heart rate and rhythm complicating labor and delivery; Z37.0 Single live birth; O41.1230 Chorioamnionitis, third trimester, not applicable or unspecified; E66.9 Obesity, unspecified; Z3A.39 39 weeks gestation of pregnancy